=== PATIENT | female | born 1930 | race Caucasian/White ===

== ENCOUNTER 2018-05-21 15:43 | Observation (INO) | payer OTHER, MEDICARE ==
[~2018-05-21] VITALS: Ht 167.6 cm; Wt 71.7 kg
[~2018-05-21 15:43] MED LIST: ATHENOL325 MG PO
[2018-05-21 17:29] LABS: BASOPHIL (%) 0.9 % (0-1); BASOPHIL COUNT 0.1 K/uL (0-0.1); EOSINOPHIL (%) 2.9 % (0-5); EOSINOPHIL COUNT 0.2 K/uL (0-0.3); HEMATOCRIT 37.7 % (36.0-46.0); HEMOGLOBIN 13.2 G/DL (11.9-15.5); IMMATURE GRANULOCYTE (%) 0.3 % (0.0-0.7); LYMPHOCYTE COUNT 1.5 K/uL (1.0-2.8); MCH 33.1 PG (29.0-34.0); MCV 94.5 FL (83-99); MONOCYTE (%) 10.1 % (3-12); MONOCYTE COUNT 0.7 K/uL (0-0.8); NEUTROPHIL (%) 63.8 % (45-76); NEUTROPHIL COUNT 4.5 K/uL (1.8-6.4); PLATELET COUNT 143 K/uL (156-360); RBC DIS.WIDTH-SD 48.8 % (39-53); RED BLOOD COUNT 3.99 M/uL (3.80-5.20)
[2018-05-21 17:36] LABS: INTER. NORMALIZED RATIO 1.1
[2018-05-21 17:38] LABS: PTT 24.9 SEC (25-37)
[2018-05-21 17:42] LABS: CHLORIDE 109 mEq/L (99-109); POTASSIUM 4.4 mEq/L (3.7-5.4)
[2018-05-21 17:43] LABS: SODIUM 142 mEq/L (136-147)
[2018-05-21 17:44] LABS: GLUCOSE 114 mg/dL (70-99)
[2018-05-21 17:48] LABS: CREATININE 1.8 mg/dL (0.6-1.3); GFR ESTIMATE (CALCULATED) 28 mL/min/
[2018-05-21 17:49] LABS: UREA NITROGEN (BUN) 35 mg/dL (9-23)
[2018-05-21 17:50] LABS: TROP-I INTERPRETATION NEGATIVE; TROPONIN-I < 0.01 ng/mL (0.0-0.30)
[2018-05-21] MEDS ORDERED: BUSPAR10 MG PO (20:46)
[2018-05-21] MEDS ORDERED: ALLOPURINOL100 MG PO (20:46)
[2018-05-21] MEDS ORDERED: CERTAVITE SR W1 EACH PO (20:47)
[2018-05-21] MEDS ORDERED: CALCIUM 600 +1 EAC2 PO (20:47)
[2018-05-21] MEDS ORDERED: MELOXICAM7.5 MG PO (20:47)
[2018-05-21] MEDS ORDERED: CLONAZEPAM0.5 MG PO (20:47)
[2018-05-21] MEDS ORDERED: OMEPRAZOLE20 MG PO (20:47)
[2018-05-21] MEDS ORDERED: SERTRALINE HCL100 MG PO (20:48)
[2018-05-21] MEDS ORDERED: RANITIDINE HCL150 MG PO (20:48)
[2018-05-21] MEDS ORDERED: ZYRTEC10 M3 PO (20:48)
[2018-05-21] MEDS ORDERED: EVISTA60 MG PO (20:48)
[2018-05-21] MEDS ORDERED: TYLENOL REGULA325 MG PO (20:49)
[2018-05-21] MEDS ORDERED: MECLIZINE HCL12.5 M1 PO (20:49)
[2018-05-21] MEDS ORDERED: MIRALAX255 GM PO (20:49)
[2018-05-22 00:23] VITALS: BP 145/72
[2018-05-22 05:08] VITALS: BP 129/58
[2018-05-22 07:50] LABS: TROP-I INTERPRETATION NEGATIVE; TROPONIN-I < 0.01 ng/mL (0.0-0.30)
[2018-05-22 07:58] VITALS: BP 172/76
[2018-05-22 08:15] VITALS: BP 172/76
[2018-05-22 12:11] VITALS: BP 157/74
[2018-05-22 14:17] LABS: TROP-I INTERPRETATION NEGATIVE; TROPONIN-I < 0.01 ng/mL (0.0-0.30)
[2018-05-22 16:07] VITALS: BP 158/77
== END 2018-05-22 18:58 | disposition home or self-care (01) ==
LOC: EME 15:43 → EDOF 21:00 → 4SOUTH 21:00 → EDOF 21:00 → ENRESERV 21:03 → 4SOUTH 22:39
PROVIDERS: Emergency Medicine; Family Medicine
DX: R07.9 Chest pain, unspecified (principal); K21.9 Gastro-esophageal reflux disease without esophagitis; R51 Headache; R11.0 Nausea; R42 Dizziness and giddiness; F41.9 Anxiety disorder, unspecified; Z88.5 Allergy status to narcotic agent
CPT/HCPCS: 70450; 71045; 80048; 84484; 85025; 85610; 85730; 93005; 99281; 99285; G0378